=== PATIENT | female | born 1990 | race Caucasian/White ===

== ENCOUNTER 2021-03-18 14:10 | Emergency (ER) | payer OTHER ==
[~2021-03-18] VITALS: Ht 165.1 cm; Wt 142.9 kg
[2021-03-18] MEDS ORDERED: CASIRIVIMAB/IMDEVIMAB 10 ML in SODIUM CHLORIDE 0.9% 100 ML IV ONE (14:15)
== END 2021-03-18 16:10 | disposition home or self-care (01) ==
LOC: ER 14:12
DX: R05 Cough (principal); U07.1 COVID-19
CPT/HCPCS: 99283; J7050